=== PATIENT | female | born 1955 | race Caucasian/White ===

== ENCOUNTER 2019-12-01 19:55 | Inpatient (IN) | payer MEDICARE, BC ==
[~2019-12-01] VITALS: Ht 180.3 cm; Wt 66.5 kg
[2019-12-01 21:31] VITALS: BP 114/54
[2019-12-01 22:05] VITALS: BP 118/62
--- NOTE | 2019-12-01 22:08 | NUR ---
PRBC THAT STARTED EN ROUTE TO ED COMPLETE AT THIS TIME. PT LAYING IN BED. RESPIRATIONS ARE EVEN AND UNLABORED. NO DISTRESS NOTED. WILL CONTINUE TO MONITOR PATIENT.
[2019-12-01 22:27] LABS: BASOPHILS 0 % (0-2); EOSINOPHILS 0.2 % (0-7); HEMATOCRIT 25.6 % (36.0-48.0); HEMOGLOBIN 7.7 g/dL (12-16); IMMATURE GRANULOCYTES 0.2 % (0-5); LYMPHOCYTES 11.5 % (15-50); MCH 22.9 pg (26.0-34.0); MCHC 30.1 g/dL (31.0-37.0); MCV 76.2 fL (80.0-100.0); MONOCYTES 1.4 % (2-11); NEUTROPHILS 86.7 % (40-80); PLATELET COUNT 116 10x3/uL (130-400); RBC 3.36 10x6/uL (4.00-5.40); RDW 19.7 % (11.5-14.5); WBC 5.7 10x3/uL (4.8-10.8)
[2019-12-02] VITALS (19 sets, daily range): BP systolic 106–150; BP diastolic 53–78; Ht 180.3 cm; Wt 66.5 kg
--- NOTE | 2019-12-02 | NUR ---
RECIEVED TO FLOOR ACCOMPANIED BY STAFF. A&O X 4. DENIES PAIN, REPORTS DIZZINESS. VS STABLE. MALINA LINDSAY APN IN ROOM, WILL CONTINUE TO MONITOR.
[2019-12-02 00:26] LABS: HEMATOCRIT 24.7 % (36.0-48.0); HEMOGLOBIN 7.5 g/dL (12-16)
--- NOTE | 2019-12-02 02:00 | NUR ---
SUPINE IN BED. SPONTANEOUS EYE OPENING UPON VERBAL STIMULATION. REPORTS OCCASIONAL DIZZINESS, VS STABLE. DENIES NAUSEA/PAIN. CTM. NO NEEDS VOICED AT THIS TIME.
[2019-12-02 03:34] LABS: BASOPHILS 0 % (0-2); EOSINOPHILS 0 % (0-7); HEMATOCRIT 23.2 % (36.0-48.0); IMMATURE GRANULOCYTES 0.3 % (0-5); LYMPHOCYTES 8.6 % (15-50); MCH 22.8 pg (26.0-34.0); MCHC 29.7 g/dL (31.0-37.0); MCV 76.6 fL (80.0-100.0); MONOCYTES 4.3 % (2-11); NEUTROPHILS 86.8 % (40-80); PLATELET COUNT 108 10x3/uL (130-400); RBC 3.03 10x6/uL (4.00-5.40); RDW 19.6 % (11.5-14.5)
[2019-12-02 03:51] LABS: ALBUMIN 2.8 g/dL (3.4-5.0); ANION GAP 13.1 mmol/L (8-16); BILIRUBIN - TOTAL 1.21 mg/dL (0.2-1.3); CARBON DIOXIDE 23.2 mmol/L (21.0-32.0); MAGNESIUM - SERUM 1.7 mg/dL (1.8-2.4); PHOSPHOROUS 3.3 mg/dL (2.5-4.9); POTASSIUM - SERUM 4.3 mmol/L (3.5-5.1); PROTEIN - SERUM 5.1 g/dL (6.4-8.2)
[2019-12-02 03:59] LABS: APTT 29.6 SECONDS (22.8-39.4); INR 1.5 (0.85-1.17); PROTIME 17.9 SECONDS (11.6-15.0); WBC 7.2 10x3/uL (4.8-10.8)
[2019-12-02 04:01] LABS: HEMOGLOBIN 6.9 g/dL (12-16)
--- NOTE | 2019-12-02 04:08 | NUR ---
MALINA MALLOY APRN PAGED R/T CRITICAL LABS
--- NOTE | 2019-12-02 04:10 | NUR ---
MALINA MALLOY RETURNED PAGE, UPDATE GIVEN INCLUDING CRITICAL LABS, ORDERS RECEIVED; TRANSFUSE 2 UNITS PRBC, RECHECK H&H 1 HOUR S/P TRANSFUSION OF PRBC, NO FURTHER AT THIS TIME WILL CONTINUE TO MONITOR. 0417-LAB CALLED AND INFORMED OF ORDERS FOR 2 UNITS PRBC TO TRANSFUSE, SPOKE WITH ANOOP
--- NOTE | 2019-12-02 04:26 | NUR ---
SUPINE IN BED, VS STABLE. NO S/SX OF DISTRESS, CTM.
--- NOTE | 2019-12-02 04:55 | NUR ---
FIRST UNIT OF PRBC STARTED, VSS, PT AAOx4, WILL CONTINUE TO MONITOR
--- NOTE | 2019-12-02 05:06 | NUR ---
CONTACTED PT'S VIA PHONE CALL, TRANSFERRED TO PT ROOM
--- NOTE | 2019-12-02 07:30 | NUR ---
REPORT RECIEVED, SHIFT ASSESSMENT COMPLETE, PT IS ALERT AND ORIENTED, ON RA WITH 97% O2 SAT. ALL PPP, VSS, CALL LIGHT IN REACH
--- NOTE | 2019-12-02 10:56 | NUR ---
REASSESSMENT COMPLETE PER FLOW SHEET. VSS. PT RESTING COMFORTLY WILL CONTINUE TO MONITOR
[2019-12-02 11:02] LABS: HEMATOCRIT 28.6 % (36.0-48.0); HEMOGLOBIN 8.9 g/dL (12-16)
--- NOTE | 2019-12-02 13:00 | NUR ---
PT UPTO BSC AT THIS TIME, 100CC OF DARK TARRY STOOL
--- NOTE | 2019-12-02 15:06 | NUR ---
DR. WOODARD AT BEDSIDE, UPDATE GIVEN, WILL CON'T TO MONITOR
--- NOTE | 2019-12-02 15:34 | NUR ---
EGD COMPLETE, PT TOLERATED WELL
--- NOTE | 2019-12-02 18:00 | NUR ---
PATIENT TO ROOM AT THIS TIME. IV LEAKING SMALL AMOUNT. FIXED BY ICU NURSE. PATIENT HAS NO COMPLAINTS OR SIGNS OF DISTRESS. ORIENTED TO ROOM AND CALL LIGHT. CALL LIGHT WITHIN REACH. WAITING FOR PATIENT TO GET ORDERS FROM ICU FOR LIQUID DIET.
[2019-12-02 18:40] LABS: HEMATOCRIT 27.8 % (36.0-48.0); HEMOGLOBIN 8.9 g/dL (12-16)
[2019-12-03 00:48] LABS: HEMATOCRIT 23.6 % (36.0-48.0)
[2019-12-03 00:50] LABS: HEMOGLOBIN 7.3 g/dL (12-16)
[2019-12-03 01:49] VITALS: BP 137/62
--- NOTE | 2019-12-03 05:31 | NUR ---
I have reviewed this patient and I concur with the Shift Assessment completed by the Licensed Practical Nurse today this shift.
[2019-12-03 05:55] LABS: ALBUMIN 2.7 g/dL (3.4-5.0); ANION GAP 12.9 mmol/L (8-16); BILIRUBIN - TOTAL 1.24 mg/dL (0.2-1.3); CALCIUM 7.8 mg/dL (8.5-10.1); CARBON DIOXIDE 20.5 mmol/L (21.0-32.0); MAGNESIUM - SERUM 1.8 mg/dL (1.8-2.4); PHOSPHOROUS 2.7 mg/dL (2.5-4.9)
[2019-12-03 06:01] VITALS: BP 146/70
[2019-12-03 06:02] LABS: POTASSIUM - SERUM 3.4 mmol/L (3.5-5.1)
--- NOTE | 2019-12-03 07:10 | NUR ---
ALERT AND ORIENTED, RESTING IN BED WITH EYES OPEN. NO C/O PAIN. NO S/S OF ACUTE DISTRESS NOTED. ON ELECTROLYTE PROTOCOL, POTASSIUM 3.4 THIS AM. WILL FOLLOW PROTOCOL. NO IV ACCESS. DENIES ANY NEEDS AT THIS TIME. CALL LIGHT IN REACH. WILL CONTINUE TO MONITOR.
[2019-12-03 09:11] LABS: BASOPHILS 0.2 % (0-2); EOSINOPHILS 1.9 % (0-7); HEMOGLOBIN 8.2 g/dL (12-16); IMMATURE GRANULOCYTES 0.5 % (0-5); LYMPHOCYTES 21.5 % (15-50); MCH 25.3 pg (26.0-34.0); MCHC 31.7 g/dL (31.0-37.0); NEUTROPHILS 66.9 % (40-80); RBC 3.24 10x6/uL (4.00-5.40); RDW 19.3 % (11.5-14.5)
[2019-12-03 09:12] LABS: WBC 4.2 10x3/uL (4.8-10.8)
[2019-12-03 09:13] LABS: HEMATOCRIT 25.9 % (36.0-48.0); MCV 79.9 fL (80.0-100.0)
[2019-12-03 09:14] LABS: PLATELET COUNT 52 10x3/uL (130-400)
[2019-12-03 09:37] VITALS: BP 145/77
--- NOTE | 2019-12-03 11:33 | NUR ---
INFUSION OF 1 UNIT OF PRBC STARTED. VITALS STABLE. NO S/S OF ACUTE DISTRESS NOTED.
--- NOTE | 2019-12-03 13:12 | NUR ---
I have reviewed this patient and I concur with the Shift Assessment completed by the Licensed Practical Nurse today this shift.
[2019-12-03 13:42] VITALS: BP 141/66
--- NOTE | 2019-12-03 14:21 | NUR ---
UNIT OF PRBC INFUSION COMPLETE. VITALS STABLE. NO C/O PAIN. NO S/S OF ACUTE DISTRESS NOTED. CALL LIGHT IN REACH. WILL CONTINUE TO MONITOR. 300ML OF PRBC INFUSED.
[2019-12-03 17:16] VITALS: BP 153/82
--- NOTE | 2019-12-03 18:38 | NUR ---
ALERT AND ORIENTED, SITTING UP IN BED. NO C/O PAIN. NO S/S OF ACUTE DISTRESS NOTED. DENIES ANY NEEDS AT THIS TIME. CALL LIGHT IN REACH. WILL CONTINUE TO MONITOR.
[2019-12-03 19:36] VITALS: BP 160/65
--- NOTE | 2019-12-03 20:00 | NUR ---
PATIENT RESTING IN BED WITH EYES OPEN. NO S/S OF DISTRESS. NO C/O AT THIS TIME. PATIENT HAS IV IN LEFT FOREARM, NORMAL SALINE @ 75 ML/HR, AND PROTONIX @ 10 ML/HR. PATIENT CAME FROM ICU 2 DAYS AGO. PATIENT HAS SINCE RECIVED 3 UNITS OF BLOOD. PATIENT HAS A REDRAW FOR HGB AND HCT. PATIENT HAS SPOTS OF NON-PIGMENTED SKIN ON HER ARMS. PATIENT'S SCLERA IS YELLOW TINGED. CALL LIGHT IN PLACE. WILL CONTINUE TO MONITOR.
[2019-12-03 20:21] LABS: HEMATOCRIT 30.5 % (36.0-48.0); HEMOGLOBIN 9.4 g/dL (12-16)
[2019-12-04] VITALS: BP 166/67
[2019-12-04 04:00] VITALS: BP 152/76
[2019-12-04 05:12] LABS: BASOPHILS 0.2 % (0-2); EOSINOPHILS 3.7 % (0-7); HEMATOCRIT 31.7 % (36.0-48.0); HEMOGLOBIN 9.8 g/dL (12-16); IMMATURE GRANULOCYTES 0.2 % (0-5); LYMPHOCYTES 21.7 % (15-50); MCH 25.4 pg (26.0-34.0); MCHC 30.9 g/dL (31.0-37.0); MONOCYTES 6.8 % (2-11); NEUTROPHILS 67.4 % (40-80); RBC 3.86 10x6/uL (4.00-5.40); RDW 19.9 % (11.5-14.5); WBC 4.1 10x3/uL (4.8-10.8)
[2019-12-04 05:15] LABS: MCV 82.1 fL (80.0-100.0); PLATELET COUNT 77 10x3/uL (130-400)
[2019-12-04 05:21] LABS: ANION GAP 11.9 mmol/L (8-16); BILIRUBIN - TOTAL 1.81 mg/dL (0.2-1.3); CALCIUM 8.1 mg/dL (8.5-10.1); CARBON DIOXIDE 22.5 mmol/L (21.0-32.0); CREATININE - SERUM 0.9 mg/dL (0.6-1.3); MAGNESIUM - SERUM 2.1 mg/dL (1.8-2.4); PHOSPHOROUS 3.2 mg/dL (2.5-4.9); POTASSIUM - SERUM 3.4 mmol/L (3.5-5.1); PROTEIN - SERUM 5.8 g/dL (6.4-8.2)
--- NOTE | 2019-12-04 06:22 | NUR ---
I have reviewed this patient and I concur with the Shift Assessment completed by the Licensed Practical Nurse today this shift.
--- NOTE | 2019-12-04 07:15 | NUR ---
REC'D IN BED AWAKE AND ALERT. RESP EVEN AND UNLABORED WITH NO DISTRESS NOTED. CAN EXPRESS NEEDS AND WANTS. NO C/O NOTED OR VOICED. ASSESSMENT COMPLETED. C/L IN REACH AT BEDSIDE.
[2019-12-04] MEDS ORDERED: PROTONIX40 MG PO (09:32)
[2019-12-04 09:38] VITALS: BP 187/82
--- NOTE | 2019-12-04 10:15 | MORECARE ---
CASE MANAGEMENT DISCHARGE SUMMARY PATIENT: ARLET MIRELES UNIT: [id number] ADM DATE: 12/01/19 AGE: 64 : 53 SEX: F ROOM/BED: D.2239 AUTHOR: MARYBETHDOC PHYSICIAN: REFERRING PHYSICIAN: ARTURO SANDOVAL MD DATE OF SERVICE: 12/04/19 Discharge Plan Patient Name: ARLET MIRELES Facility: [facility]:[place] : 1955 Planned Disposition: Home Anticipated Discharge Date: 12/04/19 Discharge Date: Expected LOS: 3 Initial Reviewer: [email or web address] Initial Review Date: 12/04/2019 Generated: 12/04/19 11:15 am Comments DCP- Discharge Planning Updated by [email or web address]: Helen Jones on 12/04/19 9:[address] Patient Name: ARLET MIRELES Admission Status: ER Accout number: [id number] Admission Date: 12-01-2019 : 1955 Admission Diagnosis: Attending: ARTURO SANDOVAL Current LOS: 3 Anticipated DC Date: 12-04-2019 Planned Disposition: Home Primary Insurance: MEDICARE A & B Discharge Planning Comments: CM met with patient to complete initial dc planning assessment. CM educated patient on the CM role and verbal consent given by patient to complete assessment. Patient lives at home with her spouse where she is independent with her care. At discharge patient plans to return and feels this is a safe discharge. CM discussed availability of home health, rehab services, and medical equipment. Patient denied known discharge needs at this time. States her friend will drive her home. CM will continue to follow and will assist as needed with dc plans/needs. Earth Science Teacher: Helen Jones DCPIA - Discharge Planning Initial Assessment Updated by [email or web address]: Helen Jones on 12/04/19 10:09 am * Is the patient Alert and Oriented? Yes * How many steps to enter\exit or inside your home? ramp/0 * PCP None * Pharmacy [facility] in [place] * Preadmission Environment Home with Family * ADLs Independent * Equipment None * List name and contact numbers for known caregivers / representatives who currently or will assist patient after discharge: [employer] - [phone] * Verbal permission to speak to the caregivers and representatives has been obtained from the patient. Yes * Community resources currently utilized None * Additional services required to return to the preadmission environment? No * Can the patient safely return to the preadmission environment? Yes * Has this patient been hospitalized within the prior 30 days at any hospital? No Coverage Notice Reviewer: [id number] Neo Helen Karen Notice Issued Date-Time: 12/04/2019 8:00 Notice Type: IM Discharge Notice Notice Delivered To: Patient Relationship to Patient: Self Chemistry Faculty Member Name: Delivery Method: HAND - Hand Delivered Linda Days: Prior Verbal Notification: Recipient Understood Notice: Yes Recipient Signature: Yes Med Rec Note Co-signed by Attending: Coverage Notice Comment: IMM explained, signed, given, copy placed in MR Patient Name: ARLET MIRELES Page [phone] at 1015 All edits/amendments must be made on the electronic document DICTATION DATE: 12/04/19 1015 INDUSTRIAL MANAGEMENT TEACHER: PRAVEENA 12/04/19 1015 RPT#: [id number] DC DATE: STATUS: ADM IN [facility] [address] [place] [address] END OF REPORT
--- NOTE | 2019-12-04 12:40 | NUR ---
PT DC HOME AT THIS TIME VOICE UNDERSTANDING OF DC ORDERS. IV DC AT THIS TIME. STABLE UPON DEPARTURE.
--- NOTE | 2019-12-04 17:01 | MORECARE ---
CASE MANAGEMENT DISCHARGE SUMMARY PATIENT: ARLET MIRELES UNIT: [id number] ADM DATE: 12/01/19 AGE: 64 : 53 SEX: F ROOM/BED: D.2239 AUTHOR: MARYBETH,DOC PHYSICIAN: REFERRING PHYSICIAN: ARTURO SANDOVAL MD DATE OF SERVICE: 12/04/19 Discharge Plan Patient Name: ARLET MIRELES Facility: [facility]:[place] : 1955 Planned Disposition: Home Anticipated Discharge Date: 12/04/19 Discharge Date: 12/04/2019 Expected LOS: 3 Initial Reviewer: [email or web address] Initial Review Date: 12/04/2019 Generated: 12/04/19 6:01 pm Comments DCP- Discharge Planning Updated by [email or web address]: Helen Jones on 12/04/19 9:[address] Patient Name: ARLET MIRELES Admission Status: ER Accout number: [id number] Admission Date: 12-01-2019 : 1955 Admission Diagnosis: Attending: ARTURO SANDOVAL Current LOS: 3 Anticipated DC Date: 12-04-2019 Planned Disposition: Home Primary Insurance: MEDICARE A & B Discharge Planning Comments: CM met with patient to complete initial dc planning assessment. CM educated patient on the CM role and verbal consent given by patient to complete assessment. Patient lives at home with her spouse where she is independent with her care. At discharge patient plans to return and feels this is a safe discharge. CM discussed availability of home health, rehab services, and medical equipment. Patient denied known discharge needs at this time. States her friend will drive her home. CM will continue to follow and will assist as needed with dc plans/needs. Resident Athletic Trainer: Helen Jones DCPIA - Discharge Planning Initial Assessment Updated by [id number]: Helen Jones on 12/04/19 10:09 am * Is the patient Alert and Oriented? Yes * How many steps to enter\exit or inside your home? ramp/0 * PCP None * Pharmacy [facility] in [place] * Preadmission Environment Home with Family * ADLs Independent * Equipment None * List name and contact numbers for known caregivers / representatives who currently or will assist patient after discharge: [facility]-[phone] * Verbal permission to speak to the caregivers and representatives has been obtained from the patient. Yes * Community resources currently utilized None * Additional services required to return to the preadmission environment? No * Can the patient safely return to the preadmission environment? Yes * Has this patient been hospitalized within the prior 30 days at any hospital? No Coverage Notice Reviewer: [id number] Neo Jones Notice Issued Date-Time: 12/04/2019 8:00 Notice Type: IM Discharge Notice Notice Delivered To: Patient Relationship to Patient: Self Flue Blower Name: Delivery Method: HAND - Hand Delivered Linda Days: Prior Verbal Notification: Recipient Understood Notice: Yes Recipient Signature: Yes Med Rec Note Co-signed by Attending: Coverage Notice Comment: IMM explained, signed, given, copy placed in MR Last DP export: 12/04/19 9:15 a Patient Name: ARLET MIRELES Page [phone] at 1701 All edits/amendments must be made on the electronic document DICTATION DATE: 12/04/191700 DENTAL EQUIPMENT MECHANIC: PRAVEENA 12/04/191700 RPT#: [id number] DC DATE:12/04/19 STATUS: DIS IN [facility] [address] [place] [address] END OF REPORT
== END 2019-12-04 13:06 | disposition home or self-care (01) | DRG 441 ==
LOC: D.ER 19:55 → D.ICU 20:52 → D.MS 12-02 18:07
PROVIDERS: Emergency Medicine; Internal Medicine Gastroenterology; ADMIT Internal Medicine Nephrology; ATTEND Internal Medicine Nephrology
PROC: 0DJ08ZZ Inspection of Upper Intestinal Tract, Via Natural or Artificial Opening Endoscopic (ICD-10-PCS; principal; 2019-12-02 14:30)
DX: K76.6 Portal hypertension (principal); I85.01 Esophageal varices with bleeding; N17.9 Acute kidney failure, unspecified; D62 Acute posthemorrhagic anemia; K31.89 Other diseases of stomach and duodenum; F10.20 Alcohol dependence, uncomplicated; D50.9 Iron deficiency anemia, unspecified; K21.0 Gastro-esophageal reflux disease with esophagitis; D69.6 Thrombocytopenia, unspecified; L80 Vitiligo

== ENCOUNTER 2019-12-11 22:03 | Inpatient (IN) | payer MEDICARE, BC ==
[~2019-12-11] VITALS: Ht 180.3 cm; Wt 70.9 kg
[~2019-12-11 22:03] MED LIST: PROTONIX40 MG PO
[2019-12-11 22:30] VITALS: BP 145/84
[2019-12-11 22:33] LABS: BASOPHILS 0.4 % (0-2); EOSINOPHILS 2.9 % (0-7); HEMATOCRIT 29.2 % (36.0-48.0); HEMOGLOBIN 8.6 g/dL (12-16); LYMPHOCYTES 21.8 % (15-50); MCH 24.4 pg (26.0-34.0); MCHC 29.5 g/dL (31.0-37.0); MCV 82.7 fL (80.0-100.0); MONOCYTES 10.8 % (2-11); NEUTROPHILS 64.1 % (40-80); RBC 3.53 10x6/uL (4.00-5.40); RDW 20.2 % (11.5-14.5); WBC 4.5 10x3/uL (4.8-10.8)
[2019-12-11 22:37] LABS: PLATELET COUNT 159 10x3/uL (130-400)
[2019-12-11 22:42] LABS: APTT 32.2 SECONDS (22.8-39.4); INR 1.21 (0.85-1.17); PROTIME 15.3 SECONDS (11.6-15.0)
[2019-12-11 22:43] LABS: ANION GAP 16.2 mmol/L (8-16); CARBON DIOXIDE 23.5 mmol/L (21.0-32.0); CREATININE - SERUM 0.9 mg/dL (0.6-1.3); POTASSIUM - SERUM 3.7 mmol/L (3.5-5.1)
[2019-12-11 22:53] LABS: ALBUMIN 3.3 g/dL (3.4-5.0); BILIRUBIN - TOTAL 0.92 mg/dL (0.2-1.3); PROTEIN - SERUM 6.4 g/dL (6.4-8.2)
[2019-12-12] VITALS (12 sets, daily range): BP systolic 133–156; BP diastolic 63–84; Ht 180.3 cm; Wt 70.9 kg
--- NOTE | 2019-12-12 01:00 | NUR ---
ARRIVED TO UNIT FROM ER VIA WHEELCHAIR. ALERT/ORIENTED. ABLE TO AMBULATE TO BED. IV TO RIGHT HAND SALINE LOCKED. ADMISSION HISTORY AND ASSESSMENT INITIATED. HOME MEDS REVIEWED. PT TEACHING ON PLAN OF CARE. IR WILL BE CONSULTED IN AM REGARDING RIGHT PLEURAL EFFUSION. PT IN NO DISTRESS. RESPS EVEN/NONLABORED.
[2019-12-12 01:05] LABS: BILIRUBIN NEGATIVE (NEGATIVE); GLUCOSE NEGATIVE (NEGATIVE); KETONE NEGATIVE (NEGATIVE); NITRITE NEGATIVE (NEGATIVE); UROBILINOGEN NORMAL (NORMAL)
[2019-12-12 01:08] LABS: UDS - AMPHET NEGATIVE QUAL (NEGATIVE); UDS - BARB NEGATIVE QUAL (NEGATIVE); UDS - BENZO NEGATIVE QUAL (NEGATIVE); UDS - COCAINE NEGATIVE QUAL (NEGATIVE); UDS - OPIATE NEGATIVE QUAL (NEGATIVE); UDS - PCP NEGATIVE QUAL (NEGATIVE); UDS - THC NEGATIVE QUAL (NEGATIVE)
--- NOTE | 2019-12-12 07:15 | NUR ---
RECEIVED PT SITTING IN CHAIR AAOX4 RESP UNLABORED SKIN W/D COLOR WNL PT DENIES ANY DISCOMFORT OR NEEDS AT THIS TIME
--- NOTE | 2019-12-12 10:00 | NUR ---
SPOKE WITH CHIDI IN RADIOLOGY STATED RADIOLOGIST WAS GOING TO LOOK AT PT RECORD AND LET US KNOW WHEN THORENCENTISIS WILL BE DONE
--- NOTE | 2019-12-12 15:33 | NUR ---
PT REFUSES SCDs AT THIS TIME
[2019-12-12 19:12] LABS: MACROPHAGES BF 58 %; NEUT - BF 14 %
--- NOTE | 2019-12-12 20:00 | NUR ---
REPORT RECIEVED AND INITIAL ROUNDS COMPLETED. PT SOB AFTER GETTING UP TO GO TO THE BATHROOM. PLACED ON O2 @ 2L/NC AND ENCOURAGED PT TO REST. DRESSING TO RIGHT BACK THORACENTESIS SITE C/D/I. SALINE LOCK TO RIGHT HAND. SEE SHIFT ASSESSMENT. CPOC.
[2019-12-13 04:00] VITALS: BP 138/66
--- NOTE | 2019-12-13 04:28 | NUR ---
RESTING IN BED, CURRENTLY RADIOLOGY DOING PORTABLE CXR. O2 SAT 96% ON 2L. CPOC.
[2019-12-13 06:45] LABS: HEMATOCRIT 25.5 % (36.0-48.0); MCHC 29.4 g/dL (31.0-37.0); MCV 81.7 fL (80.0-100.0); RBC 3.12 10x6/uL (4.00-5.40); RDW 19.9 % (11.5-14.5)
[2019-12-13 06:48] LABS: HEMOGLOBIN 7.5 g/dL (12-16); PLATELET COUNT 105 10x3/uL (130-400)
[2019-12-13 06:54] LABS: ALBUMIN 2.6 g/dL (3.4-5.0); ANION GAP 12.8 mmol/L (8-16); BILIRUBIN - TOTAL 0.55 mg/dL (0.2-1.3); CARBON DIOXIDE 24.2 mmol/L (21.0-32.0); CREATININE - SERUM 0.9 mg/dL (0.6-1.3); MAGNESIUM - SERUM 1.9 mg/dL (1.8-2.4); PROTEIN - SERUM 5.4 g/dL (6.4-8.2)
[2019-12-13 07:07] LABS: ELLIPTOCYTES OCC; LYMPHOCYTES 15 % (15-50); MONOCYTES 1 % (2-11); NEUTROPHILS 84 % (40-80); PLATELET ESTIMATE NORMAL; SCHISTOCYTES OCC
[2019-12-13 07:08] LABS: ROULEAUX OCC
--- NOTE | 2019-12-13 07:20 | NUR ---
RECIEVE REPORT. ALERT AND ORIENTED X4. SITTING UP IN BED. PATIENT STATES, "SO I'M READY TO GO HOME, WHAT TIME WILL THE DOCTOR BE HERE?" EXPLAIN UNKNOWN TIME FOR DOCTOR TO ARRIVE AND THE DOCTOR WANTS TO ASSESS BEFORE DISCHARGE. DENIES ANY OTHER NEEDS. CONTINUE PLAN OF CARE AND SAFETY PRECAUTIONS.
[2019-12-13 10:35] VITALS: BP 153/80
[2019-12-13 11:17] LABS: % SATURATION 4 % (15-55); IRON 14 ug/dl (35-150); TOTAL IRON BIND CAPACITY 326 ug/dl (260-445); UNSAT IRON BIND CAPACITY 312 ug/dl (150-375)
--- NOTE | 2019-12-13 11:58 | NUR ---
ALERT AND ORIENTED X4. PATIENT STATES, "IF I DON'T SEE THE DOCTOR BY THE TIME MY RIDE GETS HERE, I'M LEAVING." ENCOURAGE TO WAIT A LITTLE LONGER. EXPLAIN IF LEAVING AMA INSURANCE WILL NOT PAY. AGREES TO WAIT UNTIL 1400. NOTIFY PAIGE RECINOS.
--- NOTE | 2019-12-13 13:46 | NUR ---
ALERT AND ORIENTED X4. NOT MEDICALLY STABLE FOR DISCHARGE PER . PATIENT STATES, "I DON'T CARE. I'M LEAVING. AMA PAPERS SIGNED ON CHART. WAITING FOR RIDE TO ARRIVE.
--- NOTE | 2019-12-13 16:20 | NUR ---
RIDE ARRIVES. DC RT HAND IV TIP INTACT. AMBULATES TO RIDE. REMAINS FREE FROM INJURY.
--- NOTE | 2019-12-14 09:57 | EC ---
PATIENT:ARLET MIRELES DATE OF SERVICE: 12/12/19 SEX: F MEDICAL RECORD: [id number] DATE OF : [birth year] LOCATION:D.M2 D.212 AGE OF PATIENT: 64 ADMISSION DATE: 12/12/19 REFERRING PHYSICIAN: INTERPRETING PHYSICIAN: TEVIN PATEL MD ECHOCARDIOGRAM REPORT ECHO CHARGES 4 ECHO COMPLETE Date: 12/12/19 CLINICAL DIAGNOSIS: DYSPNEA ECHOCARDIOGRAPHIC MEASUREMENTS (adult normal given) AC root (d.<3.7cm) 3.2 cm LV Septum d (<1.2 cm> 1.3 cm Valve Excursion 2.0 cm LV Septum (systole) 1.8 cm Left Atria (s.<4.0cm> 3.5 cm LVPW d(<1.2cm) 1.3 cm RV (d.<2.3cm) 2.0 cm LVPW (sytole) 1.9 cm LV diastole(<5.6CM) 4.7 cm MV E-F(>70mm/sec) cm LV systole 2.8 cm LVOT Diameter 1.8 cm MV exc.(>10mm) cm Est.ejection fraction (50-75%) % DOPPLER: LVIT cm/sec A 117 cm/sec E 69.0 cm/sec LA cm/sec RVSP 35.0 mmHg LVOT 130 cm/sec AOP1/2T m/s Asc. Ao 139 cm/sec RVOT 79.0 cm/sec RA cm/sec PA 122 cm/sec AV Gradient Peak 7.7 mmHg AV Mean 4.1 mmHg AV Area 2.0 cm MV Gradient Peak 6.5 mmHg MV Mean 1.9 mmHg MV Area cm COMMENTS: Elastic Assembler: 1 ZOË GONCALVESOE Finger Waver: 3 Dr. Jones TAPE# PACS Pericardial Effusion N DATE OF SERVICE: Adequate 2D, color flow imaging, spectral Doppler, and M-Mode. Mild LVH. LV internal dimension is normal. Wall motion is normal. EF is greater than or equal to 55%. Aortic valve is tricuspid. No evidence of stenosis by Doppler interrogation. Left atrium is normal at 3.5 cm. Mitral valve shows no prolapse. Trace MR. Right-sided chambers are grossly normal. Mild TR. ECHOCARDIOGRAM REPORT [id number] ARLET MIERLES TRANSINT:[id number] Voice Confirmation ID: [id number] DOCUMENT ID: [id number] TEVIN PATEL MD at 0957 CC: [id number] DICTATION DATE: 12/13/19 1004 WELL FLOW OPERATOR: 12/13/19 1319 DIS IN 12/13/19 [facility] [address] [place] [address]
[2019-12-15 14:08] LABS: ACID FAST SMEAR Negative (()); AFB SPECIMEN PROCESSING Not Indicated (())
== END 2019-12-13 16:32 | disposition left against medical advice (07) | DRG 194 ==
LOC: D.ER 22:03 → OBSVTIME 22:57 → D.M2 22:57
PROVIDERS: Family Medicine; Internal Medicine Nephrology; Radiology Vascular & Interventional Radiology; ADMIT Family Medicine; ATTEND Family Medicine
PROC: 0W993ZZ Drainage of Right Pleural Cavity, Percutaneous Approach (ICD-10-PCS; principal; 2019-12-12 15:10)
DX: J18.9 Pneumonia, unspecified organism (principal); F17.203 Nicotine dependence unspecified, with withdrawal; J90 Pleural effusion, not elsewhere classified; D61.818 Other pancytopenia; R91.1 Solitary pulmonary nodule; D50.9 Iron deficiency anemia, unspecified; F10.20 Alcohol dependence, uncomplicated